=== PATIENT | male | born 1995 | race African-American/Black ===

== ENCOUNTER 2024-06-04 23:33 | Emergency (ER) | payer OTHER ==
[~2024-06-04] VITALS: Ht 182.9 cm; Wt 110.0 kg
[2024-06-05] VITALS: BP 141/102; TEMP 37; O2SAT 99
[2024-06-05 00:01] VITALS: PULSE 82; RESP 18; O2SAT 98
[2024-06-05 00:32] LABS: CLARITY URINE TURBID (CLEAR); COLOR URINE RED (YELLOW); GLUCOSE URINE NEGATIVE (NEGATIVE); KETONES URINE NEGATIVE (NEGATIVE); LEUKOCYTE ESTERASE URINE 1+ (NEGATIVE); NITRITE URINE NEGATIVE (NEGATIVE); OCCULT BLOOD URINE 2+ (NEGATIVE); PH URINE 5.5 (4.5-8.0); PROTEIN URINE 2+ (NEGATIVE); SPECIFIC GRAVITY URINE 1.033 (1.005-1.030)
[2024-06-05 01:12] LABS: RBC URINE TNTC /hpf (0-2)
[2024-06-05 01:18] LABS: BACTERIA URINE NONE SEEN; SQUAMOUS EPITHELIAL CELL URINE 1+ /lpf (RARE/1+); WBC URINE 0-2 /hpf (0-2)
[2024-06-05 01:21] LABS: CHLORIDE 101 mEq/L (98-107); POTASSIUM 3.3 mEq/L (3.5-5.1); SODIUM 140 mEq/L (136-145)
[2024-06-05 01:22] LABS: CALCIUM 9.6 mg/dL (8.7-10.4); CARBON DIOXIDE 29 mEq/L (21-32)
[2024-06-05 01:27] LABS: CREATININE 1.1 mg/dL (0.6-1.3); GLUCOSE 133 mg/dL (70-105); UREA NITROGEN BLOOD 11 mg/dL (9-23)
[2024-06-05 01:31] LABS: PROTHROMBIN TIME 10.5 sec (9.6-11.0)
[2024-06-05 02:03] LABS: BASOPHILS % 1.3 % (0.0-2.0); CREATINE KINASE 458 IU/L (46-171); EOSINOPHILS % 2.7 % (0.0-5.0); HEMATOCRIT. 45.3 % (42.0-52.0); HEMOGLOBIN. 15.6 g/dL (14.0-18.0); LYMPHOCYTES % 33.8 % (20.0-50.0); MEAN CORPUSCULAR HEMOGLOBIN 31.8 pg (28.0-32.0); MEAN CORPUSCULAR HGB CONC 34.4 g/dL (31.0-37.0); MEAN CORPUSCULAR VOLUME 92.4 fL (80.0-94.0); MEAN PLATELET VOLUME 9.3 fl (7.4-10.4); MONOCYTES % 4.8 % (2.0-8.0); NEUTROPHILS % 57.4 % (40.0-76.0); PLATELET 225 x1000/uL (130-400); RED CELL DISTRIBUTION WIDTH 13.6 % (11.6-14.6); WHITE BLOOD COUNT 10.1 x1000/uL (4.5-11.0)
[2024-06-05] MEDS: DOXYCYCLINE HYCLATE 100MG CAPSULE PO ONE (02:24)
[2024-06-05] MEDS: CEFTRIAXONE SODIUM 500MG VIAL IM ONE (02:25)
[2024-06-08 04:08] LABS: CHLAMYDIA TRACHOMATIS NAA Negative (Negative); NEISSERIA GONORRHOEAE NAA Negative (Negative)
== END 2024-06-05 03:22 | disposition home or self-care (01) ==
LOC: ER 23:33
DX: Z11.3 Encounter for screening for infections with a predominantly sexual mode of transmission (principal); Z20.822 Contact with and (suspected) exposure to COVID-19
CPT/HCPCS: 99283; 87491; 87529 ×2; 87591; 80048; 81003; 82550; 85025; 85610; 36415; 96372; 83874; J0696